=== PATIENT | female | born 1955 | race Caucasian/White ===

== ENCOUNTER → 2019-01-01 | Outpatient (CLI) | payer OTHER | LOC: BMCIMAGING 15:42 | PROVIDERS: ATTEND Orthopaedic Surgery Hand Surgery | DX: S52.502D Unspecified fracture of the lower end of left radius, subsequent encounter for closed fracture with routine healing (principal) ==

== ENCOUNTER 2019-01-03 13:35 | Day surgery (SDC) | payer OTHER ==
[~2019-01-03 13:35] MED LIST: HYDROCODONE/APAP 5/325 TAB PO SCH
[2019-01-03] MEDS ORDERED: ceFAZolin 2 GM/DEXTROSE 100 ML IV ONE (13:49)
[2019-01-03] MEDS ORDERED: LR 1,000 ML IV ONE (13:49)
[2019-01-03] MEDS ORDERED: BUPIVACAINE/EPI 0.5% 30 ML SDV ONE (14:24)
[2019-01-03] MEDS ORDERED: MIDAZOLAM 2 MG/2 ML VIAL IVP ONE (14:25)
--- NOTE | 2019-01-03 15:41 | PDANEPAE ---
ANE History of Present Illness left distal radius fracture ANE Past Medical History - Cardiovascular History Hx Hypertension: No Hx Arrhythmias: No Hx Chest Pain: No Hx Coronary Artery / Peripheral Vascular Disease: No Hx CHF / Valvular Disease: No Hx Palpitations: No - Pulmonary History Hx COPD: No Hx Asthma/Reactive Airway Disease: No Hx Recent Upper Respiratory Infection: No Hx Oxygen in Use at Home: No Hx Sleep Apnea: No - Neurologic History Hx Cerebrovascular Accident: No Hx Seizures: No Hx Dementia: No - Endocrine History Hx Diabetes: No Hypothyroid: No Hyperthyroid: No Obesity: no - Renal History Hx Renal Disorders: No - Liver History Hx Hepatic Disorders: No - Neurological & Psychiatric Hx Hx Neurological and Psychiatric Disorders: No - Cancer History Hx Cancer: No - Congenital Disorder History Hx Congenital Disorders: No - GI History GERD: no Hx Gastrointestinal Disorders: No - Chronic Pain History Chronic Pain: No ANE Review of Systems Review of systems is: negative Review of Systems: - Exercise capacity Exercise capacity: >=4 METS METS (RN): 6 METS ANE Patient History - Allergies Allergies/Adverse Reactions: No Allergies Allergy (Verified 01/02/19 16:30) - Home Medications Home medications: home medication list seen and reviewed Home Medications: Multivitamin 01/03/19 [Last Taken 01/02/19] - NPO status NPO Status: no food or drink >8 hours NPO Since - Liquids (Date): 01/03/19 NPO Since - Liquids (Time): 11:45 NPO Since - Solids (Date): 01/02/19 NPO Since - Solids (Time): 19:00 - Anes Hx Anes Hx: no prior problems ANE Labs/Vital Signs - Vital Signs Vital Signs: reviewed preoperatively; see RN documention for details Blood Pressure: 156/98 Heart Rate: 75 Respiratory Rate: 16 O2 Sat (%): 97 Height: 162.56 cm Weight: 64.41 kg ANE Physical Exam - Airway Neck exam: FROM Mallampati Score: Class 1 Mouth exam: normal dental/mouth exam - Pulmonary Pulmonary: no respiratory distress - Cardiovascular Cardiovascular: regular rate and rhythym - ASA Status ASA Status: I ANE Anesthesia Plan Anesthesia Plan: GA w LMA
--- NOTE | 2019-01-03 16:25 | PDHPUP ---
History & Physical Update H&P update statement: This history and physical update is based on an assessment of the patient which was completed after admission or registration (within 24 hours), but prior to the surgery/procedure. H&P update: H&P reviewed & patient examined, no change in patient's condition since H&P completed
[2019-01-03] MEDS ORDERED: PROPOFOL/EMULSION 500 MG/50 ML BOTTLE IV ONE ×2 (16:44→17:20)
[2019-01-03] MEDS ORDERED: MIDAZOLAM 2 MG/2 ML VIAL ONE (16:49)
[2019-01-03] MEDS ORDERED: fentaNYL 100 MCG/2 ML INJ ONE ×3 (17:09→19:01)
[2019-01-03] MEDS ORDERED: DEXAMETHASONE 4 MG/ML VIAL ONE ×2 (17:18)
[2019-01-03] MEDS ORDERED: ONDANSETRON 4 MG/2 ML VIAL ONE (17:18)
[2019-01-03] MEDS ORDERED: LABETALOL HCL 5 MG/ML 20 ML MDV IVP PRN (17:48)
[2019-01-03] MEDS ORDERED: fentaNYL 100 MCG/2 ML INJ IVP PRN (17:48)
[2019-01-03] MEDS ORDERED: HYDROmorphONE/DILAUDID 2 MG/ML INJ IVP PRN (17:48)
[2019-01-03] MEDS ORDERED: NALOXONE HCL 0.4 MG/ML INJ IVP PRN (17:48)
[2019-01-03] MEDS ORDERED: PROMETHAZINE HCL 25 MG/ML INJ IVP PRN (17:48)
[2019-01-03] MEDS ORDERED: PHENYLEPHRINE HCL 100 MCG/ML SYR IVP PRN (17:48)
[2019-01-03] MEDS ORDERED: oxyCODONE IR 5 MG TAB PO PRN (17:48)
[2019-01-03] MEDS ORDERED: MEPERIDINE 25 MG/0.5 ML AMP IVP PRN (17:48)
[2019-01-03] MEDS ORDERED: ALBUTEROL 3 ML DEYVIAL IH PRN (17:48)
[2019-01-03] MEDS ORDERED: LR 500 ML IV PRN (17:48)
[2019-01-03] MEDS ORDERED: METOCLOPRAMIDE 10 MG/2 ML VIAL IVP PRN (17:48)
[2019-01-03] MEDS ORDERED: ACETAMINOPHEN 500 MG TAB PO PRN (17:48)
[2019-01-03] MEDS ORDERED: PROPOFOL 200 MG/20 ML VIAL ONE (18:09)
[2019-01-03] MEDS ORDERED: ACETAMINOPHEN 500 MG TAB ONE (19:01)
[2019-01-03] MEDS ORDERED: oxyCODONE IR 5 MG TAB ONE (19:01)
--- NOTE | 2019-01-03 19:01 | POSTANESTH ---
Post Anesthetic Evaluation Cardiovascular Status: Normal, Stable Respiratory Status: Normal, Stable Level of Consciousness/Mental Status: Can Participate in Eval Pain Control: Adequate, Prn Tx Ordered Nausea/Vomiting Control: Adequate, Prn Tx Ordered Complications Possibly Related to Anesthesia: None Noted
[2019-01-03 19:37] VITALS: BP 139/65
--- NOTE | 2019-01-05 07:26 | GOP ---
[f rep st] OPERATIVE REPORT DATE OF OPERATION: 01/03/2019 SURGEON: Saturnino Rodrigues MD ANESTHESIA: General. PREOPERATIVE DIAGNOSIS: Left impending malunion extraarticular distal radius fracture. 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 PROCEDURE PERFORMED: Open reduction and internal fixation of left extraarticular distal radius fracture. FINDINGS: ESTIMATED BLOOD LOSS: 5 cc. INDICATIONS: The patient is a 63-year-old female who sustained this injury while she was hiking in [place] December 08. She fell, was seen in a clinic a few days later after her fall. A distal radius fracture was identified per her own report. It was reduced and casted. She was seen at another clinic for recasting, however, no new x-rays were taken. By the time she saw me in clinic for further followup of her wrist, it had been nearly a month after her injury. I removed her cast and took an x-ray. The x-ray showed a severely dorsally angulated extraarticular distal radius fracture with about 40 degrees of dorsal angulation and marked shortening over 5 mm. I discussed with her that this position is not acceptable for adequate function and is within the indications for ORIF. I explained to her that this would be slightly more difficult as her fracture was essentially healing now. I discussed the risks and benefits of surgery. Risks include pain, bleeding, infection, damage to surrounding structures, delayed union, nonunion, stiffness, weakness, late tendon rupture, nerve irritation, and need for further surgery. She understood these risks and wished to proceed. DESCRIPTION OF PROCEDURE: The patient was in preoperative holding area. She was given the opportunity to ask any questions. All her questions were answered. Consent was signed. Surgical site was marked. She was transferred to the operative suite. Care was taken to pad all bony prominences on the rcanistota. Time-out was called including surgical and anesthesia teams, confirming surgical site, and procedure to be performed. The left upper extremity was prepped and draped in usual sterile fashion. 2 g of Ancef was given prior to incision. The left upper extremity was prepped and draped in the usual sterile fashion. Esmarch was used to exsanguinate the left upper extremity and tourniquet was inflated to 250 mmHg. We then made an incision for a standard modified Issac approach for distal radius. Continued the approach protecting all vital structures at all times. I peeled the pronator quadratus off the bone with an L-shaped type of flap. I then performed the [place] modification approach. I opened up the radial septum at the 1st dorsal compartment. I step lengthened the brachioradialis. I then identified the fracture site and she was again essentially healing and almost healed here. I used the [place] to find the prior fracture margins and then I essentially re- broke through the prior fracture site. I loosened up the dorsal periosteum, being careful to protect the extensor tendons. I divided the entire dorsal periosteum to assist in the reduction. After this was divided, I then chose a plate. This was a 3 hole narrow. I held the plate down to the bone with a cortical screw. Then we reduced the fracture to the plate. I checked the reduction. I was very happy with the tilt. I had achieved volar tilt and a good normal length. Then, I placed several screws under fluoroscopic guidance in the distal locking cluster to stabilize the fracture. When I was happy with the position, I then placed the remaining screws in the distal locking cluster and placing all these short of the dorsal cortex. I placed 2 more locking screws in the shaft. I checked the final x-rays. I was very happy with all views. I checked an axial type view and saw that one of the screws was long in the dorsal cortex and I replaced the screw with a shorter one then checked the view again, and all screws were short. I then irrigated copiously with sterile saline. I closed the pronator quadratus over the distal edge of the plate with 2-0 Vicryl. I repaired the brachioradialis, then I repaired the FCR fascia and closed the skin with interrupted 4-0 Monocryl. Sterile dressing was applied. Patient was placed in a volar slab splint. She tolerated the procedure well. She was taken to PACU in stable condition. IMPLANTS USED: [employer] distal radius plating system. POSTOPERATIVE CONDITION: Stable. POSTOPERATIVE PLAN: The patient will follow up with me in 10-14 days. We will begin a distal radius protocol. Radiographs will be taken regularly. I will have our hand therapist make her a removable brace. /[id number]/MODL MTDD
== END 2019-01-03 19:54 | disposition home or self-care (01) ==
LOC: FSGY 13:35
PROVIDERS: ATTEND Orthopaedic Surgery Hand Surgery
PROC: 0PHJ04Z Insertion of Internal Fixation Device into Left Radius, Open Approach (ICD-10-PCS; principal; 2019-01-03 15:30)
DX: S52.532A Colles' fracture of left radius, initial encounter for closed fracture (principal); W10.8XXA Fall (on) (from) other stairs and steps, initial encounter; Y93.01 Activity, walking, marching and hiking; Y92.89 Other specified places as the place of occurrence of the external cause
CPT/HCPCS: C1713; J0690; J1100; J2250; J2405; J2704; J3010

== ENCOUNTER → 2019-01-16 | Outpatient (CLI) | payer OTHER | LOC: BMCIMAGING 10:12 | PROVIDERS: ATTEND Orthopaedic Surgery Hand Surgery | DX: S52.592D Other fractures of lower end of left radius, subsequent encounter for closed fracture with routine healing (principal) ==

== ENCOUNTER → 2019-02-13 | Outpatient (CLI) | payer OTHER | LOC: BMCIMAGING 09:57 | PROVIDERS: ATTEND Orthopaedic Surgery Hand Surgery | DX: S52.592D Other fractures of lower end of left radius, subsequent encounter for closed fracture with routine healing (principal) ==

== ENCOUNTER → 2019-03-13 | Outpatient (CLI) | payer OTHER | LOC: BMCIMAGING 09:55 | PROVIDERS: ATTEND Orthopaedic Surgery Hand Surgery | DX: S52.532D Colles' fracture of left radius, subsequent encounter for closed fracture with routine healing (principal) ==